=== PATIENT | female | born 1950 | race Caucasian/White ===

== ENCOUNTER 2022-09-16 14:34 | Emergency (ER) | payer MEDICARE ==
[~2022-09-16] VITALS: Ht 165.1 cm; Wt 65.8 kg
--- NOTE | 2022-09-16 15:29 | NUR ---
HEADACHE/FACE PAIN/SWELLING SINCE YESTERDAY, BP IS HIGH ALL THE TIME ACCORDING TO HIM. ATTACHED TO MONITOR, BLOOD PRESSURE ELEVATED. PAIN IS 10/10 ON PAIN SCALE. AWAITING MD ORDERS.
[2022-09-16] MEDS: AMLODIPINE BESYLATE 5 MG TABLET PO ONE (16:00)
[2022-09-16] MEDS: ACETAMINOPHEN ES 500 MG TABLET PO ONE (16:00)
[2022-09-16] MEDS ORDERED: AMLODIPINE BESYLATE 10 MG TABLET ONE (17:11)
[2022-09-16] MEDS ORDERED: ACETAMINOPHEN ES 500 MG TABLET ONE (17:11)
[2022-09-16] MEDS ORDERED: FLUT16SP16 BNOSTRILS (18:11)
[2022-09-16 18:34] VITALS: BP 152/100
--- NOTE | 2022-09-16 18:34 | NUR ---
Patient discharged to home in stable condition. Written and verbal after care instructions given. Patient verbalizes understanding of instruction.
== END 2022-09-16 18:38 | disposition home or self-care (01) ==
LOC: ER 14:34
DX: J32.9 Chronic sinusitis, unspecified (principal); R51.9 Headache, unspecified; I10 Essential (primary) hypertension; E11.9 Type 2 diabetes mellitus without complications
CPT/HCPCS: 70450-TC

== ENCOUNTER 2024-11-10 11:04 | Emergency (ER) | payer MEDICARE, OTHER ==
[~2024-11-10] VITALS: Ht 162.6 cm; Wt 63.5 kg
[~2024-11-10 11:04] MED LIST: FLUT16SP16 BNOSTRILS
[2024-11-10] MEDS ORDERED: ACETAMINOPHEN ES 500 MG TABLET ONE (12:27)
[2024-11-10] MEDS ORDERED: ONDANSETRON HCL/PF 4 MG/2 ML VIAL ONE (12:27)
[2024-11-10] MEDS: ACETAMINOPHEN 325 MG TABLET PO ONE (12:30)
[2024-11-10] MEDS: IV NS 0.9% 1,000 ML BAG IV ONE (12:30)
[2024-11-10] MEDS: ONDANSETRON HCL/PF 4 MG/2 ML VIAL IVP ONE (12:30)
[2024-11-10 12:40] LABS: BASOPHILS % (AUTO) 0.6 % (0.0-2.0); EOSINOPHILS % (AUTO) 0.3 % (0.0-6.0); HEMATOCRIT 41 % (33-45); LYMPHOCYTES # (AUTO) 1.7 K/uL (0.8-4.8); LYMPHOCYTES % (AUTO) 23.2 % (20.0-44.0); MEAN CORPUSCULAR HEMOGLOBIN 28 PG (26.0-33.0); MEAN CORPUSCULAR HGB CONC 34 g/dl (31.0-36.0); MEAN CORPUSCULAR VOLUME 84 fL (82-100); MONOCYTES # (AUTO) 0.5 K/uL (0.1-1.30); MONOCYTES % (AUTO) 6.2 % (2.0-12.0); NEUTROPHILS # (AUTO) 5.2 K/uL (1.8-8.9); NEUTROPHILS % (AUTO) 69.7 % (43.0-81.0); PLATELET COUNT (AUTO) 236 K/uL (150-450); RED BLOOD CELL COUNT(AUTO) 4.91 MIL/uL (4.0-5.2); RED CELL DISTRIBUTION WIDTH 15.2 % (11.5-15.0); WHITE BLOOD COUNT (AUTO) 7.4 K/uL (4.3-11.0)
[2024-11-10 12:53] LABS: CALCIUM, SERUM 9.6 mg/dL (8.5-10.1); CARBON DIOXIDE 27 mmol/L (21-32); CHLORIDE 96 mmol/L (98-107); CREATININE 0.9 mg/dL (0.6-1.3); GLUCOSE 164 mg/dL (74-106); POTASSIUM 3.9 mmol/L (3.5-5.1); SODIUM SERUM 133 mmol/L (136-145); UREA NITROGEN, BLOOD 25 mg/dL (7-18)
[2024-11-10 13:10] LABS: ALANINE AMINOTRANSFERASE 30 U/L (12-78); ALBUMIN 4.1 g/dL (3.4-5.0); ALKALINE PHOSPHATASE 104 U/L (46-116); ASPARTATE AMINOTRANSFERASE 24 U/L (15-37); BILIRUBIN,DIRECT 0.1 mg/dL (0.0-0.2); BILIRUBIN,TOTAL 0.5 mg/dL (0.2-1.0)
[2024-11-10] MEDS ORDERED: LABETALOL 20 MG/4 ML VIAL ONE (14:33)
[2024-11-10] MEDS: LABETALOL 20 MG/4 ML VIAL IV ONE (14:39)
[2024-11-10] MEDS ORDERED: MECLIZINE HCL 25 MG TABLET ONE (15:27)
[2024-11-10] MEDS: MECLIZINE HCL 12.5 MG TABLET PO ONE (15:28)
[2024-11-10] MEDS ORDERED: FAMOTIDINE/PF INJ 20 MG/2 ML VIAL IV ONE (15:34)
[2024-11-10] MEDS: FAMOTIDINE/PF INJ 20 MG/2 ML VIAL IV ONE (15:35)
[2024-11-10 16:02] LABS: APPEARANCE,URINE Clear (CLEAR); BILIRUBIN,URINE Negative (NEGATIVE); BLOOD, URINE Small Ery/uL (NEGATIVE); COLOR,URINE YELLOW (YELLOW); KETONES,URINE Trace mg/dL (NEGATIVE); LEUKOCYTE ESTERASE ,URINE Negative (NEGATIVE); NITRITE, URINE Negative (NEGATIVE); PH,URINE 5.5 (5.0-8.0); PROTEIN,URINE >=300 mg/dl (NEGATIVE); UGLUCOSE Negative (NEGATIVE); UROBILINOGEN,URINE 0.2 EU/dL (0.2)
[2024-11-10 16:09] LABS: ADD URINE CULTURE NO; BACTERIA,URINE Few /HPF (None Seen); SQUAMOUS EPITHELIAL CELL,UR Few /HPF (None Seen)
[2024-11-10 16:36] VITALS: BP 178/92; TEMP 98.2; O2SAT 99
== END 2024-11-10 16:36 | disposition home or self-care (01) ==
LOC: ER 11:16
DX: R10.12 Left upper quadrant pain (principal); R53.1 Weakness; R42 Dizziness and giddiness; R51.9 Headache, unspecified; R11.2 Nausea with vomiting, unspecified; E11.9 Type 2 diabetes mellitus without complications; I10 Essential (primary) hypertension; K74.60 Unspecified cirrhosis of liver; K76.6 Portal hypertension; Z90.49 Acquired absence of other specified parts of digestive tract; Z90.710 Acquired absence of both cervix and uterus; Z20.822 Contact with and (suspected) exposure to COVID-19
CPT/HCPCS: 99285; 70450; 96374; 96375; 71045; 96361; 87426; 93005; 87804 ×2; 74176; 85025; 80048; 87086; 83690; 80076; 81001; 36415; 84484 ×2; J8597; J3490 ×2; J2405; J7030